=== PATIENT | female | born 1940 ===

== ENCOUNTER 2018-03-19 08:38 | Day surgery (SDC) | payer OTHER, MEDICARE, MEDICAID ==
[2018-03-08 08:49] VITALS: BMI 30.9
[2018-03-19] MEDS ORDERED: Adenosine 90 mg/30mL IV ONE ×2 (10:57→12:21)
[2018-03-19] MEDS ORDERED: Verapamil 2 ML ONE (10:57)
[2018-03-19] MEDS ORDERED: Iohexol 350mgl/ml 50 ML ONE (10:57)
[2018-03-19] MEDS ORDERED: Nitroglycerin 50mg in D5W 50 MG/250 ML BOTTLE IV ONE (10:58)
[2018-03-19] MEDS ORDERED: Iodixanol 320 MG/ML 200 ML BOTTLE IV ONE (10:58)
[2018-03-19] MEDS ORDERED: Lidocaine 2% PF (10 ml) Amp ONE (10:58)
[2018-03-19] MEDS ORDERED: Midazolam 2 MG/2 ML VIAL ONE ×2 (11:36→11:44)
[2018-03-19] MEDS ORDERED: Phenylephrine 10 mg/ml Inj ONE (12:07)
[2018-03-19 13:39] VITALS: TEMP 98.5
--- NOTE | 2018-03-19 15:00 | CARDCATH ---
PROCEDURE DATE: 03/19/2018 INDICATIONS FOR PROCEDURE: Ms. Karen Ibarra is a 77-year-old female with past medical history significant for hypertension, diabetes, hyperlipidemia, CAD, status post stenting, who was admitted to [facility] for acute decompensated heart failure, bilateral pleural effusion and lower extremity edema. She was titrated on medications and actively diuresed with IV diuretic therapy and remained euvolemic and was subsequently transferred over to [facility] for further evaluation of her coronary status. PROCEDURE PERFORMED: Left heart catheterization with selective left and right coronary angiogram, left ventriculogram, 6-Turkmen right femoral arterial access. Fractional flow reserve of left anterior descending, left circumflex and obtuse marginal branch. Intracoronary vascular ultrasound of left main and left anterior descending. ANGIOGRAPHIC FINDINGS: Left main large-sized vessel, bifurcates into LAD and left circumflex coronary artery. Left main has a 55-60% stenosis. With a IVUS, minimal luminal area of 3.8. LAD has 2 stents in the proximal and mid segments with in-stent restenosis. The proximal edge of the LAD stent has 55% stenosis and the distal edge of the second stent has a 75% stenosis. The patient's FFR in the LAD was 0.72, which was physiologically significant. Left circumflex large-sized vessel, stent in the mid segment is patent. Proximal circ has a 60% stenosis. Obtuse marginal 1 has a proximal 65% stenosis with the mid stent patent. FFR of the circumflex and obtuse marginal branch was 1 and 0.92. Physiologically nonsignificant. RCA ostial 95% stenosis, mid 80% stenosis. Proximal stent patent. LVEF is 20-25% with EDP of 32. IMPRESSION: Severe triple-vessel coronary artery disease, severe left ventricular systolic dysfunction. RECOMMENDATIONS: The patient underwent a viability study prior to this cardiac catheterization, which shows viable myocardium with depressed ejection fraction secondary to possible ischemic cardiomyopathy. The patient is to be transferred to [facility] for possible coronary revascularization via traditional CABG. Sudhakar Sainz MD cc: Glen Quinteros MD.
[2018-03-19 16:50] VITALS: BP 125/68; PULSE 71; RESP 18
== END 2018-03-19 17:00 | disposition short-term general hospital (02) ==
LOC: CATH 08:38 → 2RSO 13:15 → CATH 17:00
PROVIDERS: ATTEND Internal Medicine Interventional Cardiology
DX: I25.10 Atherosclerotic heart disease of native coronary artery without angina pectoris (principal); E78.5 Hyperlipidemia, unspecified; E11.9 Type 2 diabetes mellitus without complications; I11.0 Hypertensive heart disease with heart failure; I50.9 Heart failure, unspecified; Z95.5 Presence of coronary angioplasty implant and graft